=== PATIENT | female | born 1965 | race Caucasian/White ===

== ENCOUNTER 2022-02-16 07:30 | Day surgery (SDC) | payer BC ==
[2022-02-10 11:54] VITALS: BMI 26.6
[2022-02-16] MEDS ORDERED: LIDOCAINE HCL/PF 2% SDV 5ML VIAL ONE (08:30)
[2022-02-16] MEDS ORDERED: PROPOFOL 80 ML ONE (08:31)
[2022-02-16 09:18] VITALS: BP 137/74; PULSE 59; RESP 18; TEMP 97.5
== END 2022-02-16 09:18 | disposition home or self-care (01) ==
LOC: FASU-ENDO 07:30
PROVIDERS: ATTEND Internal Medicine Gastroenterology
PROC: 0DBN8ZX Excision of Sigmoid Colon, Via Natural or Artificial Opening Endoscopic, Diagnostic (ICD-10-PCS; principal; 2022-02-16 08:29)
DX: Z12.11 Encounter for screening for malignant neoplasm of colon (principal); K63.5 Polyp of colon; Z80.0 Family history of malignant neoplasm of digestive organs
CPT/HCPCS: 88305-TC